=== PATIENT | female | born 1940 | race Hispanic/Latino ===

== ENCOUNTER 2020-10-03 03:35 | Inpatient (IN) | payer OTHER ==
[2020-10-03 06:36] VITALS: BP 169/79
[2020-10-03] MEDS ORDERED: SITA50TA PO (06:37)
[2020-10-03] MEDS ORDERED: METF-445 PO (06:37)
[2020-10-03] MEDS ORDERED: VIT D PO (06:37)
[2020-10-03] MEDS ORDERED: DONE10TA43 PO (06:37)
[2020-10-03] MEDS ORDERED: DIATR MEGLU/DIATRIZOATE SODIUM 30 ML BOTTLE ONE (07:16)
[2020-10-03 07:49] LABS: INR 0.94 (0.85-1.15); PROTHROMBIN TIME 10.3 SEC (9.6-11.6)
[2020-10-03 07:51] LABS: PARTIAL THROMBOPLASTIN TIME 26.8 SEC (26.3-35.5)
[2020-10-03 08:00] VITALS: BP 168/77
[2020-10-03] MEDS: FAMOTIDINE 20MG VIAL IV SCH ×2 (08:10→20:27)
[2020-10-03] MEDS: 0.9%NACL 1000ML 1,000 ML IV SCH ×2 (08:11→20:28)
[2020-10-03] MEDS: ENOXAPARIN SODIUM 30 MG/0.3 ML SQ SCH (08:11)
[2020-10-03 10:14] LABS: BASOPHILS % (AUTO) 0.3 % (0.0-5.0); EOSINOPHILS % (AUTO) 0.6 % (0.0-8.0); HEMATOCRIT 40.1 % (36-48); LYMPHOCYTES % (AUTO) 5.8 % (21.0-51.0); MEAN CORPUSCULAR HEMOGLOBIN 28.5 pg (27.0-33.0); MEAN CORPUSCULAR HGB CONC 33.7 g/dL (32.0-36.0); MEAN CORPUSCULAR VOLUME 84.8 fL (79-99); MONOCYTES % (AUTO) 5.2 % (3.0-13.0); NEUTROPHILS % (AUTO) 87.8 % (40.0-77.0); PLATELET COUNT (AUTO) 286 K/uL (130-400); RED BLOOD CELL COUNT(AUTO) 4.73 MIL/uL (4.00-5.50); RED CELL DISTRIBUTION WIDTH 13.1 % (11.0-15.5); WHITE BLOOD COUNT (AUTO) 13.4 K/uL (4.8-10.8)
[2020-10-03 10:27] LABS: ALBUMIN 3.8 g/dL (3.5-5.0); BILIRUBIN,TOTAL 0.4 mg/dL (0.2-1.0); CREATININE 0.7 mg/dL (0.5-1.5); POTASSIUM 3.4 mmol/L (3.5-5.1); TOTAL PROTEIN, SERUM 8.4 g/dL (6.0-8.3)
[2020-10-03 12:00] VITALS: BP 151/69
[2020-10-03] MEDS: ZOSYN 3.375GM+NS 50ML 50 ML IV SCH (14:44)
[2020-10-03 16:00] VITALS: BP 147/60
[2020-10-03] MEDS: INSULIN HUMULIN R 100 UNIT/ML 3ML SQ SCH (16:58)
[2020-10-03] MEDS: POTASSIUM CHLORIDE 10% ELIXIR 20 MEQ/15 ML UDCUP PO PRN (17:33)
[2020-10-03 19:32] VITALS: BP 159/62
[2020-10-03 23:55] VITALS: BP 149/64
[2020-10-04] MEDS: ZOSYN 3.375GM+NS 50ML 50 ML IV SCH ×2 (00:03→06:10)
[2020-10-04] MEDS: INSULIN HUMULIN R 100 UNIT/ML 3ML SQ SCH ×5 (00:06→19:54)
[2020-10-04 03:46] VITALS: BP 117/75
[2020-10-04 05:33] LABS: BASOPHILS % (AUTO) 0.7 % (0.0-5.0); EOSINOPHILS % (AUTO) 7.3 % (0.0-8.0); HEMATOCRIT 36.4 % (36-48); LYMPHOCYTES % (AUTO) 29.4 % (21.0-51.0); MEAN CORPUSCULAR HEMOGLOBIN 27.9 pg (27.0-33.0); MEAN CORPUSCULAR VOLUME 84.7 fL (79-99); MONOCYTES % (AUTO) 6.2 % (3.0-13.0); NEUTROPHILS % (AUTO) 56.1 % (40.0-77.0); PLATELET COUNT (AUTO) 239 K/uL (130-400); RED CELL DISTRIBUTION WIDTH 13.2 % (11.0-15.5); WHITE BLOOD COUNT (AUTO) 6.2 K/uL (4.8-10.8)
[2020-10-04 05:50] LABS: ALBUMIN 3.1 g/dL (3.5-5.0); BILIRUBIN,TOTAL 0.4 mg/dL (0.2-1.0); CREATININE 0.6 mg/dL (0.5-1.5); POTASSIUM 3.5 mmol/L (3.5-5.1)
[2020-10-04 06:15] LABS: HEMOGLOBIN A1C 12.3 % (4.0-6.0)
[2020-10-04 08:09] VITALS: BP 144/64
[2020-10-04] MEDS: LINAGLIPTIN 5 MG TABLET PO SCH (09:23)
[2020-10-04] MEDS: DONEPEZIL HCL 5 MG TAB PO SCH (09:24)
[2020-10-04] MEDS: FAMOTIDINE 20MG VIAL IV SCH ×2 (09:24→19:48)
[2020-10-04] MEDS: METFORMIN HCL 850 MG TABLET PO SCH ×3 (09:24→16:33)
[2020-10-04] MEDS: ENOXAPARIN SODIUM 30 MG/0.3 ML SQ SCH (09:25)
[2020-10-04 11:30] VITALS: BP 156/80
[2020-10-04 16:00] VITALS: BP 161/56
[2020-10-04 19:00] VITALS: BP 137/81
[2020-10-04 23:30] VITALS: BP 153/79
[2020-10-05 03:55] VITALS: BP 137/77
[2020-10-05 05:10] LABS: BASOPHILS % (AUTO) 0.6 % (0.0-5.0); EOSINOPHILS % (AUTO) 4.2 % (0.0-8.0); HEMATOCRIT 38.5 % (36-48); LYMPHOCYTES % (AUTO) 30.5 % (21.0-51.0); MEAN CORPUSCULAR HEMOGLOBIN 28.2 pg (27.0-33.0); MEAN CORPUSCULAR HGB CONC 33.2 g/dL (32.0-36.0); MEAN CORPUSCULAR VOLUME 84.8 fL (79-99); MONOCYTES % (AUTO) 5.7 % (3.0-13.0); NEUTROPHILS % (AUTO) 58.7 % (40.0-77.0); PLATELET COUNT (AUTO) 259 K/uL (130-400); RED BLOOD CELL COUNT(AUTO) 4.54 MIL/uL (4.00-5.50); RED CELL DISTRIBUTION WIDTH 13.2 % (11.0-15.5); WHITE BLOOD COUNT (AUTO) 6.4 K/uL (4.8-10.8)
[2020-10-05] MEDS: INSULIN HUMULIN R 100 UNIT/ML 3ML SQ SCH ×3 (05:22→16:30)
[2020-10-05 05:27] LABS: ALBUMIN 3.4 g/dL (3.5-5.0); BILIRUBIN,TOTAL 0.3 mg/dL (0.2-1.0); CREATININE 0.6 mg/dL (0.5-1.5); POTASSIUM 3.3 mmol/L (3.5-5.1); TOTAL PROTEIN, SERUM 7.8 g/dL (6.0-8.3)
[2020-10-05] MEDS: POTASSIUM CHLORIDE 10% ELIXIR 20 MEQ/15 ML UDCUP PO PRN ×3 (05:48→13:56)
[2020-10-05 07:51] VITALS: BP 151/72
[2020-10-05] MEDS: FAMOTIDINE 20MG VIAL IV SCH (08:44)
[2020-10-05] MEDS: DONEPEZIL HCL 5 MG TAB PO SCH (08:44)
[2020-10-05] MEDS: METFORMIN HCL 850 MG TABLET PO SCH ×3 (08:44→17:44)
[2020-10-05] MEDS: LINAGLIPTIN 5 MG TABLET PO SCH (08:44)
[2020-10-05] MEDS: ENOXAPARIN SODIUM 30 MG/0.3 ML SQ SCH (08:45)
[2020-10-05 11:26] VITALS: BP 150/76
[2020-10-05 16:31] VITALS: BP 142/70
== END 2020-10-05 18:50 | disposition home or self-care (01) | DRG 390 ==
LOC: 4DH 05:44 → 3CH 10-04 18:52
PROVIDERS: ADMIT Family Medicine; ATTEND Family Medicine
DX: K56.609 Unspecified intestinal obstruction, unspecified as to partial versus complete obstruction (principal); K80.20 Calculus of gallbladder without cholecystitis without obstruction; E11.65 Type 2 diabetes mellitus with hyperglycemia; D72.829 Elevated white blood cell count, unspecified; E78.5 Hyperlipidemia, unspecified; F03.90 Unspecified dementia, unspecified severity, without behavioral disturbance, psychotic disturbance, mood disturbance, and anxiety; I10 Essential (primary) hypertension; Z83.3 Family history of diabetes mellitus; Z88.2 Allergy status to sulfonamides; E87.6 Hypokalemia
CPT/HCPCS: 36415; 74176; 76705; 80053; 82948; 83036; 85025; 85610; 85730; G0378; J1650; J1815; J2543; J3490; Q9963